=== PATIENT | male | born 1965 | race Hispanic/Latino ===

== ENCOUNTER 2025-01-30 06:10 | Emergency (ER) | payer OTHER, SELFPAY ==
[2025-01-30 06:15] VITALS: BP 153/92
[2025-01-30 06:49] LABS: Urine Albumin 2+ (Neg - Trace); Urine Bilirubin Negative (Negative); Urine Character Clear (Clear); Urine Color Yellow; Urine Glucose Negative (Negative); Urine Ketone Negative (Negative); Urine Leukocyte Negative (Negative); Urine Nitrite Negative (Negative); Urine Occult Blood Negative (Negative); Urine Specific Gravity 1.015 (<1.030); Urine Urobilinogen Negative (Neg - 1+)
--- NOTE | 2025-01-30 07:16 | ED.GENMED ---
History of Present Illness
General
Chief Complaint: Flank Pain
Source: patient
Exam Limitations: none
Time Seen by Provider: 01/30/25 06:29
Nursing documentation reviewed up to this point in time: agreed with
History of Present Illness
History of Present Illness:
Patient presents to ED secondary to worsening right lower back/flank pain, radiating to groin over the past 1 week. Denies fever or chills. Denies any change in activities. Patient reports intermittent nausea sensation without vomiting. Denies
change in bowel habits. Denies trauma. Denies difficulty urination. Patient has had history of kidney stones, which required surgical intervention, but does not recall if the symptoms were similar.
Past History
Past History
ED Past Medical History: GERD and HTN
ED Past Surgical History: Urological (Kidney stone, hernia both on the left)
Social History
Tobacco: Non-smoker
Alcohol: None
Drug: None
Personal:
Living: with family
Employment: Employed
Family History
Family History: Other (Noncontributory)
Review of Systems
Review of Systems
Allergies reviewed?: Yes
All Other Systems: ROS reviewed and negative except as documented in HPI and ROS
Constitutional: Reports no symptoms
EENT: Reports no symptoms
Respiratory: Reports no symptoms
Cardiac: Reports no symptoms
ABD/GI: Reports abdominal pain and nausea; Denies vomiting or diarrhea
: Reports flank pain; Denies dysuria or frequency
Musculoskeletal: Reports back pain
Skin: Reports no symptoms
Neurological: Reports no symptoms
Phy Exam
Physical Exam
Physical Exam:
Physical Exam
General: mild painful distress, not acutely ill. afebrile.
Head: nc/at. eomi
Neck: supple. normal range of motion.
Abdomen: normal bowel sounds. not tender. no cva tenderness
Neuro: alert and oriented x 3. no focal neurological deficits
Skin: no rash
Psychiatric: well kept. interactive and cooperative
Extremities: no edema. no calf tenderness.
Course
Orders/Labs/Results
Orders:
Orders
01/30/25 06:24
Urinalysis Reflex To Culture Urgent
Date Specimen was Collected: 01/30/25
Time Specimen was Collected: 06:21
Urine Microscopic Reflex Cult Urgent
01/30/25 06:47
CT Abd/pel Without Iv Or Oral Urgent
Comment:
Reason For Exam: right flank pain w hx kidney stone
Ketorolac [Toradol] 30 mg IV NOW STA
01/30/25 06:48
0.9% Sodium Chloride 500 ml [Nss] 500 ml IV BOLUS
Ondansetron Injectable [Zofran] 4 mg IV NOW STA
01/30/25 07:31
Complete Blood Count/With Diff Urgent
Comprehensive Metabolic Panel Urgent
01/30/25 08:41
HYDROmorphone [Dilaudid] 0.5 mg IV NOW STA
01/30/25 08:43
Acetaminophen [Tylenol] 1,000 mg PO NOW STA
Dexamethasone Sod Phosphate [Decadron] 10 mg IV NOW STA
Abnormal Lab Results
01/30/25 01/30/25
06:24 07:31
MCH 32.4 H pg
(27.0-31.0)
Absolute Lymphs (auto) 1.0 L 10^3/uL
(1.2-3.4)
Lymphocytes % 17.9 L %
(20.5-51.1)
BUN 31 H mg/dl
(9-20)
Glucose 109 H mg/dl
(70-99)
Urine Albumin (Reflex) 2+ A
(Neg - Trace)
01/30/25 07:31
01/30/25 07:31
Vital Signs
Initial and Last Documented VS:
Initial Vital Signs
Temp Pulse Resp BP Pulse Ox
97.9 F 77 16 153/92 97
01/30/25 06:15 01/30/25 06:15 01/30/25 06:15 01/30/25 06:15 01/30/25 06:15
Last Documented Vital Signs
Temp Pulse Resp BP Pulse Ox
97.9 F 77 16 135/81 93
01/30/25 06:15 01/30/25 06:15 01/30/25 06:15 01/30/25 10:00 01/30/25 10:00
MDM/Problems Addressed
MDM/Problems Addressed:
Initial presentation concerning for renal colic. As such, patient given Toradol and CT abdomen pelvis ordered without contrast.
CT abdomen pelvis report reviewed and discussed with patient. In light of patient's ongoing pain, along with patient's occupation, which involves physical labor, it is quite possible that patient may be experiencing severe musculoskeletal pain with
spasm. As such, patient will be given pain medication along with dose of steroid, and will be reassessed. Patient remains neurologically intact, without any exam findings concerning for cauda equina syndrome.
Patient reports improvement in symptoms after treatment. Patient is otherwise afebrile, hemodynamically stable, and nontoxic-appearing, at time of discharge. History exam consistent with likely underlying arthritis versus herniated disc, with
associated muscle spasm. Patient will be treated with a course of steroids, Percocet, NSAIDs, along with warm compress application. Advised close PCP follow-up for reevaluation outpatient, including potential MRI of lumbar spine, if symptoms
persist. Return precautions provided to the patient, including weakness/incontinence/fever. Patient expresses understanding at time of discharge.
*Critical Care Note
Total Time (30-74mins, 75-104mins- exclusive of procedures): Not Applicable
ED Attending Note
-
Portions of this chart may have been created with voice recognition software.� Occasional wrong word or��sound alike� substitutions may have occurred due to the inherent limitations of voice recognition software.
Discharge Plan
Departure
Patient Disposition: Home (Routine Discharge)
Date of Disposition: 01/30/25
Time of Disposition: 09:44
Patient with high blood pressure during this ER visit?: Yes
Condition: Good
Discharge Problem:
Back pain
Instructions: Back Pain
Prescriptions:
New
methylprednisolone [Medrol ([place])] 4 mg tablets,dose pack
4 mg PO DAILY Qty: 21 0RF
oxycodone-acetaminophen [Percocet] 5-325 mg tablet
1 tab PO Q6HPRN PRN (Reason: pain) Qty: 14 0RF
cyclobenzaprine 10 mg tablet
10 mg PO TIDPRN PRN (Reason: muscle spasm) Qty: 20 0RF
No Action
amlodipine [Norvasc] 10 MG tablet
10 mg PO DAILY
omeprazole 20 MG capsule,delayed release(DR/EC)
20 mg PO DAILY
naproxen sodium [Aleve] 220 MG tablet
440 mg PO BIDPRN PRN (Reason: pain) Qty: 1 0RF
tramadol 50 MG tablet
50 mg PO TIDPRN PRN (Reason: severe pain) Qty: 15 0RF
cefdinir 300 MG capsule
300 mg PO BID Qty: 20 0RF
tamsulosin 0.4 MG capsule
0.4 mg PO DAILY Qty: 90 3RF
Referrals:
Thor Crowe, DO [Family Provider] -
Stand Alone Forms: Return to Work
Activity Restrictions/Additional Instructions:
As discussed, please follow-up with your primary care physician for reevaluation, including potential MRI lumbar spine, if symptoms persist. Please consider returning to ED with worsening symptoms, i.e. fever/worsening pain/weakness/urinary or
bowel incontinence. Your prescriptions have been sent electronically to [facility] pharmacy in [place].
Interventions
Interventions:
*Risk Screen - Suicide Last Done: 01/30/25 06:15
*General Assessment Last Done: 01/30/25 08:16
*Neglect/Abuse Screening Last Done: 01/30/25 06:15
*ED- Fall Risk Assessment Last Done: 01/30/25 06:15
*ED COVID-19 Vaccine History Last Done: 01/30/25 06:15
*Nursing Disposition Last Done: 01/30/25 10:18
XS-Wkbmza-Dsdfqnbznm Assessment Last Done: 01/30/25 09:00
ED-Male Genitourinary Assessment Last Done: 01/30/25 09:00
Discharge Date and Time
Discharge Date/Time: 01/30/25 10:19
Print Language: CUBAN
[2025-01-30] MEDS: NSS 500 IV (07:29)
[2025-01-30] MEDS: ZOFRAN 4 MG IV (07:30)
[2025-01-30] MEDS: TORADOL 30 MG IV (07:30)
[2025-01-30 07:33] VITALS: BP 135/94
[2025-01-30 07:45] LABS: % Basophils 0.9 % (0-2); % Immature Granulocytes 0.3 % (0-0.5); % Lymphocytes 17.9 % (20.5-51.1); % Monocytes 8.7 % (1.7-9.3); % Neutrophils 69.2 % (42.2-75.2); Absolute Basophils 0.1 10^3/uL (0-0.2); Absolute Eosinophils 0.2 10^3/uL (0-0.7); Absolute Monocytes 0.5 10^3/uL (0.1-0.6); Hematocrit 47.4 % (39.0-52.0); Hemoglobin 16.5 g/dL (13.0-18.0); Mean Corp Hgb Conc. 34.8 g/dL (33.0-37.0); Mean Corpuscular Hgb 32.4 pg (27.0-31.0); Mean Corpuscular Volume 93.1 fL (80.0-94.0); Mean Platelet Volume 10.3 fL (7.4-10.4); Nucleated Red Blood Cells % 0 % (-); Platelet Count 197 10^3/uL (130-400); Red Blood Cell Count 5.09 10^6/uL (4.70-6.10); Red Cell Dist. Width 12.8 % (11.5-14.5); White Blood Cell Count 5.8 10^3/uL (4.8-10.8)
[2025-01-30 07:54] LABS: ALT (SGPT) 45 U/L (0-50); AST (SGOT) 37 U/L (17-59); Albumin 4.2 g/dl (3.5-5.0); Alkaline Phosphatase 62 U/L (38-126); Blood Urea Nitrogen 31 mg/dl (9-20); Calcium 9.6 mg/dl (8.4-10.2); Carbon Dioxide 26 mmol/L (22-30); Chloride 107 mmol/L (98-107); Glucose 109 mg/dl (70-99); Potassium 4.6 mmol/L (3.5-5.1); Sodium 142 mmol/L (135-145); Total Bilirubin 0.7 mg/dl (0.2-1.3); Total Protein 7.2 g/dl (6.3-8.2); eGFR > 60.00
[2025-01-30 08:00] VITALS: BP 140/73
[2025-01-30 08:26] LABS: Urine Amorphous Seen; Urine Squamous Cell 0-2 /LPF (Few)
[2025-01-30 08:27] LABS: Urine Red Blood Cell 0-2 /HPF (0-2); Urine White Cell 0-2 /HPF (0-5)
[2025-01-30] MEDS: DECADRON 10 MG IV (08:55)
[2025-01-30] MEDS: DILAUDID 0.5 MG IV (08:55)
[2025-01-30] MEDS: TYLENOL 1000 MG PO (08:55)
[2025-01-30 08:59] VITALS: BMI 38.1
[2025-01-30 10:00] VITALS: BP 135/81
== END 2025-01-30 10:19 | disposition home or self-care (01) ==
LOC: EMR 06:10
PROVIDERS: EMERGENCY PHYSICIAN Emergency Medicine; FAMILY PHYSICIAN Family Medicine
DX: M54.50 Low back pain, unspecified (principal); R10.31 Right lower quadrant pain; I10 Essential (primary) hypertension; K21.9 Gastro-esophageal reflux disease without esophagitis; Z87.442 Personal history of urinary calculi
CPT/HCPCS: 96374; 96375; 96361; 99284; 74176; 80053; 81003; 81015; 85025